=== PATIENT | female | born 1960 | race Two or more races ===

== ENCOUNTER 2016-11-21 09:48 | Emergency (ER) | payer SELFPAY ==
--- NOTE | ~2016-11-21 | ER ---
PATIENT'S NAME: FANY [facility] AGE: 56 Y [address] ROOM: [place] [id number] LOCATION: [facility] ADMIT DATE: 11/21/2016 ER/Outpatient Report DISCHARGE DATE: 11/21/2016 FAMILY PHYSICIAN: Nicole Altamirano MD ATTENDING PHYSICIAN: Marlo Chavez Time of arrival: 0954 hours. Time of evaluation: 0954 hours. CHIEF COMPLAINT: Rash. HISTORY OF PRESENT ILLNESS: The patient is a 56-year-old female, who presents to the emergency department today with chief complaint of rash. She reports that the rash started about 5 days prior to arrival. She was seen and evaluated by Dr. Nicole Altamirano and was started on triamcinolone as well as Naprosyn. She reports there are rashes that had gotten worse. Denies any exposure to any new chemicals, weeds, or environmental changes. The patient does report she has sensitive skin that is very sensitive to the light. She denies any fevers or chills. Does have a rash and itching. No hives. No swelling. Mild shortness of breath last night, but none currently. Denies any cough. No chest pain. Pain is currently 8/10 in severity. PAST MEDICAL HISTORY: Sensitivity to light with skin rash similar to this in the past. She had multiple workups and has seen a food service team member and has never figured it out. PAST SURGICAL HISTORY: None. SOCIAL HISTORY: The patient denies any tobacco, alcohol, or illicit drug use. ALLERGIES: NO KNOWN DRUG ALLERGIES. MEDICATIONS: None. PR[facility] C[facility] DOCTOR[facility] REVIEW OF SYSTEMS: All systems are reviewed by myself and negative with the exception of those [facility]GE[facility] 56 Y [address] ROOM: [place], [place] [address] LOCATION: [facility] ADMIT DATE: 11/21/2016 ER/Outpatient Report DISCHARGE DATE: 11/21/2016 FAMILY PHYSICIAN: Nicole Altamirano MD ATTENDING PHYSICIAN: Marlo Chavez discussed in HPI and past medical history. PHYSICAL EXAMINATION: VITAL SIGNS: Weight 56 kg. Blood pressure 128/75, pulse 91, respiratory rate 20, temperature 98.5, and oxygen saturation 97% on room air. GENERAL: The patient is a 56-year-old female, who appears stated age, in no acute distress at this time HEENT: Head: Normocephalic and atraumatic. Pupils are equal, round, and reactive to light. Oropharynx is clear. NECK: Supple. There is no nuchal rigidity. CARDIOVASCULAR: Regular rate and rhythm. No murmurs, rubs, or gallops. LUNGS: Clear to auscultation bilaterally. No wheezes, rales, or rhonchi. ABDOMEN: Soft, nontender, and nondistended. No rebound, rigidity, or guarding. MUSCULOSKELETAL: The patient moves all 4 extremities. SKIN: Warm and dry. There are areas of erythema. There is also some blister type appearance to the right wrist, she does have some along the right nasal fold as well as the left anterior chest wall. There is no petechiae or purpura. There is no lesions on the palms or soles. IMPRESSION: 1. Rash, unclear etiology. 2. Initial visit. EMERGENCY DEPARTMENT COURSE: The patient was brought back to the examination room. Seen and evaluated by myself. The patient is given 125 mg of Solu-Medrol IM as well as 50 mg of Benadryl IM. We have used a crane operator cab for assistance in communication. I have discussed the results of history and physical with the patient. She does report that she feels improved at this time. I have written a prescription for prednisone taper. I have recommended tote-tll-[id number] Benadryl. I have also written a prescription for hydrocortisone cream and prophylactic Keflex. I have discussed follow up with primary care in 2 to 3 days for re-evaluation. I have discussed return to care instructions including worsening symptoms or any other concerns. Return to the emergency department as soon as possible. The patient does request a work note and one is provided. DISPOSITION: The patient is discharged to home in good condition. DO GOLDEN TORRES/sowmya PATIENT'S NAME: SARAH SOARES [facility] AGE: 56 Y [address] ROOM: [place] [id number] LOCATION: [facility] ADMIT DATE: 11/21/2016 ER/Outpatient Report DISCHARGE DATE: 11/21/2016 FAMILY PHYSICIAN: Nicole Altamirano MD ATTENDING PHYSICIAN: Marlo Chavez /[id number] d: 11/21/16 1205 t: 11/21/16 1620, OUTPATIENT REPORT
== END 2016-11-21 10:47 | disposition disaster alternative care site (69) ==
LOC: GMED 09:48
DX: R21 Rash and other nonspecific skin eruption (principal); Z79.899 Other long term (current) drug therapy
CPT/HCPCS: J0171; J1200; J2930

== ENCOUNTER 2017-02-08 18:08 | Emergency (ER) | payer SELFPAY ==
--- NOTE | ~2017-02-08 | ER ---
PATIENT'S NAME: FANY [facility] AGE: 56 Y [address] ROOM: [place] [address] LOCATION: [facility] ADMIT DATE: 02/08/2017 ER/Outpatient Report DISCHARGE DATE: 02/08/2017 FAMILY PHYSICIAN: PHYSICIAN, NO ATTENDING PHYSICIAN: Antonio Akins Admission date and time are documented on the medical record. I saw the patient at 1820 hours. CHIEF COMPLAINT: Rash. HISTORY OF PRESENT ILLNESS: This patient is a 56-year-old female who comes in with urticarial hive type rash on her midupper anterior chest and right arm involving the hand, wrist, and antecubital fossa. She has some itching on her legs, but no rash. No rash on her back or abdomen. Pruritic in nature. She has some tenderness. Low-grade fever. No shortness of breath or cough. No recent colds. No recent flus. No abdominal pain, nausea, vomiting, diarrhea, or urinary frequency, urgency, or dysuria. No lightheadedness, dizziness, syncope, or near syncope. No fall or trauma. No headache, eyes, ears, nose, throat, neck, or spine pain. No joint or muscle swelling, redness, or pain. No skin eruptions or rash other than that present on her upper midanterior chest, right arm. No neuro changes, psych issues, or endocrine problems. She has had previous episodes of similar to what she has tonight. She had dermatology workups and all have been negative. HOME MEDICATIONS: None. ALLERGIES: NONE. SOCIAL HISTORY: Nonsmoker, nondrinker. SIGNIFICANT PAST MEDICAL HISTORY: Recurrent rash, etiology undetermined. OPERATIONS: None. REVIEW OF SYSTEMS: All systems reviewed by me are negative with the exception of those discussed in the history of present illness. PATIENT'S NAME: FANY [facility] AGE: 56 Y [address] ROOM: [place] [address] LOCATION: [facility] ADMIT DATE: 02/08/2017 ER/Outpatient Report DISCHARGE DATE: 02/08/2017 FAMILY PHYSICIAN: PHYSICIAN, NO ATTENDING PHYSICIAN: Antonio Akins PHYSICAL EXAMINATION: VITAL SIGNS: Temperature 99.1, tympanic, pulse 76, respirations 16, blood pressure 136/74, and O2 sat on room air is 95%. HEAD: Normocephalic. EYES, EARS, NOSE, THROAT: Clear. Mucous membranes moist. NECK: No nuchal rigidity. No thyromegaly or cervical adenopathy. No tenderness. SPINE: Nontender. No deformity. LUNGS: Clear. Good airflow. No rales, rhonchi, or wheezes. HEART: Regular. Pulses are palpable. The patient has some tenderness and urticarial rash over her sternum. ABDOMEN: Soft, nondistended, nontender. Good bowel tones. No organomegaly or abnormal mass palpable. EXTREMITIES: No peripheral edema, cyanosis, or deformity. NEUROVASCULAR: Intact. SKIN: The patient has urticarial rash on her anterior chest, over the sternum, right hand, dorsal aspect, right wrist, and right antecubital fossa over elbow. Raised, urticarial in nature, erythematous. No weeping or drainage. Not hot to the touch. No red streaking. LABORATORY DATA: Procalcitonin was normal less than 0.05. White count was 7100, 64 segs, 26 lymphs, 7 monos, 2 eos, 1 baso, hemoglobin is 12.9 with hematocrit 38.5, and platelet count is 234,000. CMS was normal except for a low anion gap of 9.7, elevated BUN of 27, CRP was 0.65. EMERGENCY DEPARTMENT COURSE: Did give the patient Solu-Medrol 125 mg IM in the emergency room and Benadryl 50 mg IM in the emergency room. IMPRESSION: Urticarial hives, etiology undetermined at this time. PLAN: The patient dismissed home. Observation. Activity as tolerated. Cool packs to the rash intermittently as needed. Prednisone 20 mg b.i.d. for a week. Zyrtec 10 mg once a day for 10 days. Benadryl 25 mg 1 to 2 every 4 to 6 hours as needed for rash. Follow up with personal physician as needed. Discussion ensued with the patient concerning my findings and recommendations, she understands. PATIENT'S NAME: SARAH SOARES [facility] AGE: 56 Y [address] ROOM: [place] [id number] LOCATION: [facility] ADMIT DATE: 02/08/2017 ER/Outpatient Report DISCHARGE DATE: 02/08/2017 FAMILY PHYSICIAN: , ZULY ATTENDING PHYSICIAN: Antonio Akins MD SDS/modl /[id number] d: 02/09/17 0013 t: 02/09/17 1817, OUTPATIENT REPORT
[2017-02-08 19:04] LABS: BASOPHIL % 0.6 %; EOSINOPHIL # 0.1 K/uL (0.0-0.5); EOSINOPHIL % 1.8 %; HEMATOCRIT 38.5 % (33.0-46.0); HEMOGLOBIN 12.9 g/dL (10.0-15.0); IMMATURE GRANULOCYTE % 0.3 %; LYMPHOCYTE # 1.9 K/uL (0.8-4.0); LYMPHOCYTE % 26.2 %; MCH 31.6 pg (27.0-34.0); MCHC 33.5 gm/dL (32.0-36.5); MCV 94.4 fl (83.0-98.0); MONOCYTE # 0.5 K/uL (0.0-1.0); MONOCYTE % 7.1 %; NEUTROPHIL # (ANC) 4.5 K/uL (1.8-7.8); NRBC % 0 /100WBC (0-0.00); PLATELET COUNT 234 K/uL (150-450); RBC 4.08 M/uL (3.50-5.50); RDW-CV 12.1 % (11.9-14.6); WBC 7.1 K/uL (4.0-11.0)
[2017-02-08 19:16] LABS: ALBUMIN 3.8 gm/dL (3.5-5.0); ALK PHOS 80 IU/L (33-138); ALT 35 IU/L (12-78); ANION GAP 9.7 (10.0-19.0); AST 21 IU/L (10-40); BLOOD UREA NITROGEN 27 mg/dL (6-24); CALCIUM 8.6 mg/dL (8.5-10.5); CHLORIDE 110 mMol/L (96-110); CO2 27 mMol/L (22-32); CREATININE 0.6 mg/dL (0.5-1.1); POTASSIUM 3.7 mMol/L (3.7-5.1); SODIUM 143 mMol/L (135-145); TOTAL BILIRUBIN 0.3 mg/dL (0.0-1.5); TOTAL PROTEIN 6.9 g/dL (6.0-8.4)
== END 2017-02-08 20:09 | disposition disaster alternative care site (69) ==
LOC: GMED 18:08
PROVIDERS: Emergency Medicine
DX: L50.9 Urticaria, unspecified (principal)